=== PATIENT | female | born 1930 | race Caucasian/White ===

== ENCOUNTER → 2017-08-14 | Outpatient (CLI) | payer MEDICARE, OTHER ==
[~2017-08-14] MED LIST: ACETAMINOPHEN-1 EAC1 PO; DIOVAN 80 MG TA80 M1 PO; FOLIC ACID1 MG PO; IBUPROFEN 400400 M1 PO; KRILL OIL 1,001 EAC1 PO; METHOTREXA25 MG/1 ML IJ; PRAVACHOL40 M1 PO
== END ==
LOC: M.WC 00:27
DX: S71.101A Unspecified open wound, right thigh, initial encounter (principal); I10 Essential (primary) hypertension; L84 Corns and callosities; M06.9 Rheumatoid arthritis, unspecified; Z90.710 Acquired absence of both cervix and uterus; X58.XXXA Exposure to other specified factors, initial encounter; Y93.89 Activity, other specified; Y92.89 Other specified places as the place of occurrence of the external cause; Y99.8 Other external cause status

== ENCOUNTER → 2017-08-21 | Outpatient (CLI) | payer MEDICARE, OTHER | LOC: M.WC 02:55 | DX: S81.801D Unspecified open wound, right lower leg, subsequent encounter (principal); I10 Essential (primary) hypertension; M06.9 Rheumatoid arthritis, unspecified; Z90.710 Acquired absence of both cervix and uterus; X58.XXXD Exposure to other specified factors, subsequent encounter ==

== ENCOUNTER → 2017-08-28 | Outpatient (CLI) | payer MEDICARE, OTHER | LOC: M.WC 04:52 | DX: S81.801D Unspecified open wound, right lower leg, subsequent encounter (principal); I10 Essential (primary) hypertension; L84 Corns and callosities; M06.9 Rheumatoid arthritis, unspecified; Z90.710 Acquired absence of both cervix and uterus; X58.XXXD Exposure to other specified factors, subsequent encounter ==

== ENCOUNTER → 2017-09-04 | Outpatient (CLI) | payer MEDICARE, OTHER | LOC: M.WC 04:56 | DX: S81.801D Unspecified open wound, right lower leg, subsequent encounter (principal); I10 Essential (primary) hypertension; M06.9 Rheumatoid arthritis, unspecified; Z90.710 Acquired absence of both cervix and uterus; X58.XXXD Exposure to other specified factors, subsequent encounter ==